=== PATIENT | male | born 1945 | race Caucasian/White ===

== ENCOUNTER 2022-10-02 08:56 | Emergency (ER) | payer MEDICAID ==
[~2022-10-02] VITALS: Ht 160 cm; Wt 88.0 kg
[2022-10-02] MEDS ORDERED: TETANUS, DIPHTHERIA, PERTUSSIS VAC/PF 0.5ML (>10YR OLD) IM ONE (09:45)
[2022-10-02] MEDS ORDERED: AMOX1TAB16 MT (09:46)
[2022-10-02 11:01] VITALS: BP 121/81
== END 2022-10-02 11:02 | disposition home or self-care (01) ==
LOC: ER 09:30
DX: Z48.00 Encounter for change or removal of nonsurgical wound dressing (principal); H57.89 Other specified disorders of eye and adnexa; I10 Essential (primary) hypertension; E11.9 Type 2 diabetes mellitus without complications; E78.00 Pure hypercholesterolemia, unspecified
CPT/HCPCS: 90471; 90715; 99283

== ENCOUNTER 2022-10-07 13:27 | Emergency (ER) | payer MEDICAID, OTHER ==
[~2022-10-07] VITALS: Ht 160 cm; Wt 82.0 kg
[~2022-10-07 13:27] MED LIST: AMOX1TAB16 MT
[2022-10-07 13:45] VITALS: BP 136/84
[2022-10-07] MEDS ORDERED: BACITRACIN ZINC OINT UDPKT TOP NR (18:00)
== END 2022-10-07 18:28 | disposition home or self-care (01) ==
LOC: ER 13:27
DX: Z48.02 Encounter for removal of sutures (principal)
CPT/HCPCS: 99282; Z7610